=== PATIENT | female | born 1940 | race Caucasian/White ===

== ENCOUNTER 2021-09-21 12:53 | Emergency (ER) | payer MEDICARE ==
[2021-09-21] VITALS (9 sets, daily range): BP systolic 110–119; BP diastolic 57–67
[~2021-09-21] VITALS: Ht 160 cm; Wt 58.4 kg
[~2021-09-21 12:53] MED LIST: INFANRIX IM
[2021-09-21] MEDS ORDERED: ATORVASTATIN CA80 MG PO (13:24)
[2021-09-21] MEDS ORDERED: PAROXETINE10 MG PO (13:24)
[2021-09-21] MEDS ORDERED: ASPIRIN LOW DOS81 M1 PO (13:24)
[2021-09-21] MEDS ORDERED: MYSOLINE250 M1 PO (13:25)
[2021-09-21] MEDS ORDERED: MECLIZINE25 MG PO (13:25)
[2021-09-21 13:46] LABS: HEMATOCRIT 36.8 % (37.0-47.0); HEMOGLOBIN 11.9 g/dl (12.0-16.0); IMMATURE GRANULOCYTES 0.2 % (0.0-5.0); MEAN CELL VOLUME 95.1 fL CALC (80.0-100.0); MEAN CORPUSCULAR HGB 30.7 pG CALC (26.0-32.0); MEAN CORPUSCULAR HGB CONC 32.3 g/dL CAL (32.0-36.0); NEUT# 5.12 thou/uL (2.00-7.15); RED BLOOD COUNT 3.87 mill/uL (4.20-5.60); RED CELL DISTRI WIDTH 13.1 % (11.5-15.5)
[2021-09-21 13:51] LABS: ALBUMIN 3.5 g/dL (3.2-5.0); BILIRUBIN, TOTAL 0.3 mg/dL (0.0-1.4); BUN 11 mg/dL (8-23); BUN/CREATININE RATIO 19 (12-20 (CALC)); CARBON DIOXIDE 26 mmol/l (22-30); CHLORIDE 100 mmol/l (95-108); CREATININE 0.5 mg/dL (0.5-1.0); GFR > 60 ML/MIN (>=60 (CALC)); GFR FOR AFR.AMER. > 60 ML/MIN (>=60 (CALC)); POTASSIUM 3.7 mmol/l (3.5-5.1); TOTAL PROTEIN 6.9 g/dL (6.3-8.2)
[2021-09-21 13:55] LABS: ALKALINE PHOSPHATASE 82 u/l (38-126); ANION GAP 10 (6-22 (CALC)); SGOT/AST 74 u/l (9-36); SODIUM 132 mmol/l (137-146)
[2021-09-21] MEDS ORDERED: KEFLEX500 MG PO (14:57)
== END 2021-09-21 15:10 | disposition home or self-care (01) ==
LOC: ED 12:53
DX: L03.011 Cellulitis of right finger (principal); S51.011A Laceration without foreign body of right elbow, initial encounter; E78.00 Pure hypercholesterolemia, unspecified; W01.0XXA Fall on same level from slipping, tripping and stumbling without subsequent striking against object, initial encounter; Y92.410 Unspecified street and highway as the place of occurrence of the external cause